=== PATIENT | female | born 1985 | race Caucasian/White ===

== ENCOUNTER → 2020-12-05 | Emergency (ER) | payer OTHER ==
[~2020-12-05] MED LIST: ACETAMINOPHEN 325 MG TAB PO PRN; CHARCOAL/SORBITOL SOLUTION 25 GM/120 ML PO ONE; MAGNESIUM HYDROXIDE (MOM) ORAL LIQD UDC PO PRN; MORPHINE 2 MG/1 ML INJ IV PRN; MORPHINE 4 MG/1 ML INJ IV PRN; ONDANSETRON 4 MG/2 ML INJ IV ONE; ONDANSETRON 4 MG/2 ML INJ IV PRN; SODIUM CHLORIDE 0.9% 1000 ML 1,000 ML IV ONE; SODIUM CHLORIDE 0.9% 1000 ML 1,000 ML IV SCH
--- NOTE | 2020-12-05 02:01 | Emergency Department Report ---
HPI - General Chief Complaint: Overdose Time Seen by Provider: 12/05/20 01:34 - HPI HPI: This is a 35-year-old female presents to the emergency department via EMS after she swallowed a baggy with an unknown amount of heroin in it. The patient was 1 of 3 individuals who were in a car that was pulled over by PD. As PD approached each one of them appeared to have swallowed their own bagged stash of heroin. When asked how much may have been in it, the patient says "if I knew I would tell you." She says that she has a past medical history of asthma. She has no complaints at this time other than feeling very tired. ED Past Medical Hx - Past Medical History Previous Medical History?: Yes Hx Asthma: Yes - Surgical History Past Surgical History?: No - Social History Smoking Status: Current Every Day Smoker Substance Use Type: Heroin ED Review of Systems ROS: Stated complaint: OVERDOSE Other details as noted in HPI Comment: All other systems reviewed and negative Constitutional: denies: chills, fever Eyes: denies: eye pain, vision change ENT: denies: ear pain, throat pain Respiratory: denies: cough, shortness of breath Cardiovascular: denies: chest pain, palpitations Gastrointestinal: denies: abdominal pain, vomiting Genitourinary: denies: dysuria, discharge Musculoskeletal: denies: back pain, arthralgia Skin: denies: rash, lesions Neurological: denies: headache, weakness Physical Exam - Physical Exam Vital Signs: Vital Signs 12/05/20 00:56 Temperature 98.8 F Pulse Rate 69 Respiratory 18 Rate Blood Pressure 105/56 O2 Sat by Pulse 100 Oximetry Physical Exam: GENERAL: The patient is ill-appearing. HENT: Normocephalic. Atraumatic. Patient has moist mucous membranes. EYES: Pupils constricted but equal reactive to light bilaterally. NECK: Supple. Trachea is midline. CHEST/LUNGS: Clear to auscultation. There is no respiratory distress noted. HEART/CARDIOVASCULAR: Regular. There is no tachycardia. There is no murmur. ABDOMEN: Abdomen is soft, nontender. Patient has normal bowel sounds. There is no abdominal distention. SKIN: Skin is warm and dry. NEURO: Patient is very sleepy. She is arousable and once awake she is oriented, AAO x3. She will go right back to sleep if not continuously stimulated. MUSCULOSKELETAL: There is no tenderness or deformity. ED Course Vital Signs 12/05/20 00:56 Temperature 98.8 F Pulse Rate 69 Respiratory 18 Rate Blood Pressure 105/56 O2 Sat by Pulse 100 Oximetry - Consultations Consultation #1: 12/05/20 01:59 I spoke with and consulted poison control. I spoke with Lea who gave recommendations after speaking with, and under the guidance of, the steak tenderizer machine on-call. They have recommended to give the patient activated charcoal with sorbitol at 1 g/kg. They do not recommend giving Narcan unless there are signs of respiratory depression. The steak tenderizer machine recommends admission to the hospital for about 24 hours in the hopes that the patient will have either 2 bowel movements or there will be visible passage of the baggy of heroin. ED Medical Decision Making - Lab Data Result diagrams: 12/05/20 01:59 12/05/20 01:59 Lab Results 12/05/20 12/05/20 12/05/20 Range/Units 01:59 01:59 01:59 WBC 7.2 (4.5-11.0) K/mm3 RBC 4.09 (3.65-5.03) M/mm3 Hgb 11.1 (10.1-14.3) gm/dl Hct 33.1 (30.3-42.9) % MCV 81 (79-97) fl MCH 27 L (28-32) pg MCHC 34 (30-34) % RDW 14.6 (13.2-15.2) % Plt Count 381 (140-440) K/mm3 Lymph % (Auto) 41.7 H (13.4-35.0) % [place] % (Auto) 6.2 (0.0-7.3) % Eos % (Auto) 5.2 H (0.0-4.3) % Baso % (Auto) 0.6 (0.0-1.8) % Lymph # (Auto) 3.0 (1.2-5.4) K/mm3 [place] # (Auto) 0.4 (0.0-0.8) K/mm3 Eos # (Auto) 0.4 (0.0-0.4) K/mm3 Baso # (Auto) 0.0 (0.0-0.1) K/mm3 Seg Neutrophils % 46.3 (40.0-70.0) % Seg Neutrophils # 3.3 (1.8-7.7) K/mm3 Sodium 138 (137-145) mmol/L Potassium 3.7 (3.6-5.0) mmol/L Chloride 102.1 (98-107) mmol/L Carbon Dioxide 27 (22-30) mmol/L Anion Gap 13 mmol/L BUN 8 (7-17) mg/dL Creatinine 0.6 (0.6-1.2) mg/dL Estimated GFR > 60 ml/min BUN/Creatinine Ratio 13 % Glucose 100 (65-100) mg/dL Calcium 8.6 (8.4-10.2) mg/dL Total Bilirubin 0.20 (0.1-1.2) mg/dL AST 19 (5-40) units/L ALT 15 (7-56) units/L Alkaline Phosphatase 86 (35-129) units/L Total Protein 6.7 (6.3-8.2) g/dL Albumin 3.7 L (3.9-5) g/dL Albumin/Globulin Ratio 1.2 % HCG, Qual (Negative) Salicylates < 0.3 L (2.8-20.0) mg/dL Acetaminophen (10.0-30.0) ug/mL Plasma/Serum Alcohol (0-0.07) % 12/05/20 12/05/20 12/05/20 Range/Units 01:59 01:59 01:59 WBC (4.5-11.0) K/mm3 RBC (3.65-5.03) M/mm3 Hgb (10.1-14.3) gm/dl Hct (30.3-42.9) % MCV (79-97) fl MCH (28-32) pg MCHC (30-34) % RDW (13.2-15.2) % Plt Count (140-440) K/mm3 Lymph % (Auto) (13.4-35.0) % [place] % (Auto) (0.0-7.3) % Eos % (Auto) (0.0-4.3) % Baso % (Auto) (0.0-1.8) % Lymph # (Auto) (1.2-5.4) K/mm3 [place] # (Auto) (0.0-0.8) K/mm3 Eos # (Auto) (0.0-0.4) K/mm3 Baso # (Auto) (0.0-0.1) K/mm3 Seg Neutrophils % (40.0-70.0) % Seg Neutrophils # (1.8-7.7) K/mm3 Sodium (137-145) mmol/L Potassium (3.6-5.0) mmol/L Chloride (98-107) mmol/L Carbon Dioxide (22-30) mmol/L Anion Gap mmol/L BUN (7-17) mg/dL Creatinine (0.6-1.2) mg/dL Estimated GFR ml/min BUN/Creatinine Ratio % Glucose (65-100) mg/dL Calcium (8.4-10.2) mg/dL Total Bilirubin (0.1-1.2) mg/dL AST (5-40) units/L ALT (7-56) units/L Alkaline Phosphatase (35-129) units/L Total Protein (6.3-8.2) g/dL Albumin (3.9-5) g/dL Albumin/Globulin Ratio % HCG, Qual Negative (Negative) Salicylates (2.8-20.0) mg/dL Acetaminophen 5.0 L (10.0-30.0) ug/mL Plasma/Serum Alcohol < 0.01 (0-0.07) % - EKG Data -: EKG Interpreted by Or EKG shows normal: sinus rhythm, axis, intervals, QRS complexes, ST-T waves (Flattening of T waves diffusely) Rate: normal - EKG Data When compared to previous EKG there are: previous EKG unavailable Interpretation: other (Sinus rhythm at 72 bpm, normal axis, normal intervals, flattening of T waves diffusely. No ST elevation myocardial infarction.) - Radiology Data Radiology results: image reviewed interpreted by me: Chest x-ray does not show any acute process. There are no pleural effusions, obvious pneumonia and there is no pneumothorax. No widened mediastinum. Abdominal x-ray shows nonspecific nonobstructive bowel gas. Increased stool volume. No radiopaque foreign body seen. No free air. - Medical Decision Making This patient presents to the emergency department initially in custody after she, along with 2 friends/acquaintances, were pulled over by PD and each person individually decided to swallow a baggy of their own heroin supply. This patient does not know how much may have been in her baggy. She presents extremely sleepy. She is arousable, but will go right back to sleep if not continuously stimulated. However, she is able to answer orientation questions appropriately and answer some other questions. Vital signs have been reassuring throughout her ED course including being afebrile. No hypoxia or any signs of significant respiratory depression. Poison control was contacted and the steak tenderizer machine recommended activated charcoal with sorbitol, and recommended an observational admission. They said not to use Narcan unless signs of respiratory depression. Labs have been mostly unremarkable including CBC, metabolic panel, acetaminophen and salicylate levels, blood alcohol, and the patient is not . We are still waiting for a urine sample for urinalysis and UDS. Chest and abdominal x-rays did not show any radiopaque foreign bodies consistent with the swallowed baggy. Patient will be admitted to the hospital for further evaluation and treatment was accepted for admission by the hospitalist, Dr. Bronson. Critical Care Time: No Critical care attestation.: If time is entered above; I have spent that time in minutes in the direct care of this critically ill patient, excluding procedure time. ED Disposition Clinical Impression: Encounter for observation for suspected toxic effect from ingested substance, Heroin abuse Heroin overdose Qualifiers: Encounter type: initial encounter Injury intent: undetermined intent Qualified Code(s): T40.1X4A - Poisoning by heroin, undetermined, initial encounter Disposition: OP ADMIT IP TO THIS HOSP Is pt being admited?: Yes Condition: Fair Referrals: PRIMARY CARE, [Primary Care Provider] - 3-5 Days Time of Disposition: 03:40
[2020-12-05 02:27] LABS: Basophils % (Auto) 0.6 % (0.0-1.8); Eosinophils # (Auto) 0.4 K/mm3 (0.0-0.4); Eosinophils % (Auto) 5.2 % (0.0-4.3); Hematocrit 33.1 % (30.3-42.9); Hemoglobin 11.1 gm/dl (10.1-14.3); Lymphocytes % (Auto) 41.7 % (13.4-35.0); Mean Corpuscular HGB Conc 34 % (30-34); Mean Corpuscular Volume 81 fl (79-97); Monocytes # (Auto) 0.4 K/mm3 (0.0-0.8); Monocytes % (Auto) 6.2 % (0.0-7.3); Platelet Count 381 K/mm3 (140-440); Red Blood Count 4.09 M/mm3 (3.65-5.03); Red Cell Distribution Width 14.6 % (13.2-15.2)
[2020-12-05 02:45] LABS: Alanine Aminotransferase 15 units/L (7-56); Albumin 3.7 g/dL (3.9-5); Blood Urea Nitrogen 8 mg/dL (7-17); Calcium 8.6 mg/dL (8.4-10.2); Hemolysis Index 0
[2020-12-05 03:02] LABS: BUN/Creatinine Ratio 13
--- NOTE | 2020-12-05 04:06 | XRay Report ---
XR abd series w cxr 1V INDICATION / CLINICAL INFORMATION: Swallowed baggie of heroin COMPARISON: None available. FINDINGS/IMPRESSION: Lungs are clear. Moderate to large colonic stool burden. Bowel gas pattern is nonobstructive. No free air. No radiopaque foreign body is identified within the chest or abdomen. Signer Name: Derrick Ying MD Signed: 12/05/2020 4:02 AM Workstation Name: [id number]
--- NOTE | 2020-12-05 04:21 | History and Physical Report ---
History of Present Illness Date of examination: 12/05/20 Date of admission: 12/05/2020 Chief complaint: Heroin ingestion History of present illness: 35-year-old female brought into the emergency room today with a complaint of swallowing a bag of about 3 g of heroin. Patient was pulled over by the police department while in the car with 2 other individuals. Patient was said to have swallowed a bag of heroin when she was approached by the police. Patient denies any chest pain or shortness of breath, no headache or dizziness, no diaphoresis. Patient denies any hematuria or dysuria. Denies any bloody stool. She and appeared intermittently drowsy during this history and physical. Upon arrival in the emergency room today, poison control was consulted patient was given activated charcoal with sorbitol. Narcan was not suggested unless patient develops respiratory depression. Recommendation was to admit patient for observation. Work-up to find the emergency room has been unremarkable. Past History Past Medical History: other (Asthma) Past Surgical History: No surgical history Social history: smoking (Current daily smoker), other (Heroin abuse) Family history: no significant family history Medications and Allergies Allergies Allergy/AdvReac Type Severity Reaction Status Date / Time No Known Allergies Allergy Unverified 12/05/20 01:09 Active Meds: Active Medications Acetaminophen (Acetaminophen 325 Mg Tab) 650 mg PO Q4H PRN PRN Reason: Pain MILD(1-3)/Fever >100.5/[place] Sodium Chloride (Nacl 0.9% 1000 Ml) 1,000 mls @ 125 mls/hr IV DIRECT MICHAEL Magnesium Hydroxide (Magnesium Hydroxide (Mom) Oral Liqd Udc) 30 ml PO Q4H PRN PRN Reason: Constipation Morphine Sulfate (Morphine 2 Mg/1 Ml Inj) 2 mg IV Q4H PRN PRN Reason: Pain, Moderate (4-6) Morphine Sulfate (Morphine 4 Mg/1 Ml Inj) 4 mg IV Q4H PRN PRN Reason: Pain , Severe (7-10) Ondansetron HCl (Ondansetron 4 Mg/2 Ml Inj) 4 mg IV Q8H PRN PRN Reason: Nausea And Vomiting Sodium Chloride (Sodium Chloride 0.9% 10 Ml Flush Syringe) 10 ml IV BID MICHAEL Sodium Chloride (Sodium Chloride 0.9% 10 Ml Flush Syringe) 10 ml IV PRN PRN PRN Reason: LINE FLUSH Review of Systems Constitutional: no fever, no chills Ears, nose, mouth and throat: no nasal congestion, no sore throat Cardiovascular: no chest pain, no palpitations Respiratory: no cough, no shortness of breath Gastrointestinal: no abdominal pain, no nausea, no vomiting, no diarrhea Genitourinary Female: no pelvic pain, no flank pain, no dysuria, no hematuria Integumentary: no rash, no pruritis Neurological: no headaches, no confusion Psychiatric: no anxiety, no depression Endocrine: no polyphagia, no polydipsia, no polyuria, no nocturia Exam - Constitutional Vitals: Temp Pulse Resp BP Pulse Ox 98.8 F 70 14 102/52 95 12/05/20 00:56 12/05/20 04:03 12/05/20 02:21 12/05/20 04:01 12/05/20 04:01 General appearance: Present: no acute distress, well-nourished - EENT Eyes: Present: PERRL, EOM intact. Absent: scleral icterus ENT: hearing intact, clear oral mucosa, dentition normal - Neck Neck: Present: supple, normal ROM - Respiratory Respiratory effort: normal Respiratory: bilateral: CTA - Cardiovascular Rhythm: regular Heart Sounds: Present: S1 & S2. Absent: systolic murmur, diastolic murmur, rub, click - Extremities Extremities: no ischemia, pulses intact, pulses symmetrical, No edema, normal temperature, normal color, Full ROM Peripheral Pulses: within normal limits - Abdominal General gastrointestinal: Present: soft, non-tender, non-distended, normal bowel sounds. Absent: mass - Integumentary Integumentary: Present: clear, warm, dry - Musculoskeletal Musculoskeletal: strength equal bilaterally - Psychiatric Psychiatric: appropriate mood/affect, intact judgment & insight, memory intact, cooperative - Neurologic Neurologic: CNII-XII intact, no focal deficits, moves all extremities, other (Appeared occasionally drowsy) Results - Labs CBC & Chem 7: 12/05/20 01:59 12/05/20 01:59 Labs: Abnormal lab results 12/05/20 12/05/20 12/05/20 Range/Units 01:59 01:59 01:59 MCH 27 L (28-32) pg Lymph % (Auto) 41.7 H (13.4-35.0) % Eos % (Auto) 5.2 H (0.0-4.3) % Albumin 3.7 L (3.9-5) g/dL Salicylates < 0.3 L (2.8-20.0) mg/dL Acetaminophen (10.0-30.0) ug/mL 12/05/20 Range/Units 01:59 MCH (28-32) pg Lymph % (Auto) (13.4-35.0) % Eos % (Auto) (0.0-4.3) % Albumin (3.9-5) g/dL Salicylates (2.8-20.0) mg/dL Acetaminophen 5.0 L (10.0-30.0) ug/mL Assessment and Plan - Patient Problems (1) Heroin overdose Current Visit: Yes Status: Acute Qualifiers: Encounter type: initial encounter Injury intent: undetermined intent Qualified Code(s): T40.1X4A - Poisoning by heroin, undetermined, initial encounter Plan to address problem: Patient admitted and placed on observation. We will monitor vital signs closely. Patient placed on IV fluid normal saline. Patient has had activated charcoal and sorbitol in the emergency room. (2) DVT prophylaxis Current Visit: Yes Status: Acute Plan to address problem: Patient placed on sequential compression device (3) Full code status Current Visit: Yes Status: Acute Plan to address problem: Patient is full code.
[2020-12-05 06:58] VITALS: BP 96/60
[2020-12-05 09:39] LABS: Amphetamine Screen,Urine PRESUMPTIVE POSITIVE; Benzodiazepines Screen,Urine PRESUMPTIVE NEGATIVE; Cannabinoid Screen,Urine PRESUMPTIVE NEGATIVE; Cocaine Screen,Urine PRESUMPTIVE NEGATIVE; Methadone Screen,Urine PRESUMPTIVE NEGATIVE; Opiate Screen,Urine PRESUMPTIVE POSITIVE
[2020-12-05 12:21] LABS: Bacteria,Urine 3+ /HPF (Negative); Bilirubin,Urine NEG (Negative); Blood,Urine NEG (Negative); Color,Urine Amber (Yellow); Mucus,Urine 3+ /HPF
--- NOTE | 2020-12-05 15:45 | Event Note ---
Date: 12/05/20 Patient eloped this am. Per RN: Patient went to the restroom and patient has eloped with IV still in arm, will create a Verge report and have notified [facility] who is sending an officer.
--- NOTE | 2020-12-06 17:57 | Electrocardiograph Report ---
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
== END | disposition left against medical advice (07) ==
LOC: ED 00:52 → 4A 04:12 → UNDOADMOB 04:12
DX: Z00.8 Encounter for other general examination (principal); Z53.21 Procedure and treatment not carried out due to patient leaving prior to being seen by health care provider
CPT/HCPCS: 36415; 74022; 80053; 80307; 81001; 84703; 85025; 87086; 93005; J2405; J7030; 80320; G0480